=== PATIENT | female | born 1960 | race Caucasian/White ===

== ENCOUNTER 2016-09-20 22:46 | Inpatient (IN) ==
[2016-09-20] MEDS ORDERED: LORazepam 2 MG/1 ML VIAL IV STA (22:58)
[2016-09-20] MEDS ORDERED: HALOPERIDOL 5 MG/ML AMP IV STA (22:58)
--- NOTE | 2016-09-20 23:02 | Emergency Department Note ---
Arrival - Arrival Time Seen by Provider: 09/20/16 22:56 - History of Present Illness HPI Narrative: Patient presents via EMS after being found at home down. The mother called the ambulance because to patient was unresponsive. At the site of contact the patient was found to have Klonopin and no other medications. On EMS arrival her pupils were pinpoint. She had no response and Narcan was given. The patient immediately became combative and disoriented. On arrival to the emergency department she cannot contribute to the history of any further. Her history consists of saying no repetitively. Allergies/Adverse Reactions: Allergies Allergy/AdvReac Type Severity Reaction Status Date / Time No Known Allergies Allergy Verified 12/19/15 13:47 Home Medications: Home Medications Medication Instructions Recorded Confirmed Type Unable To Obtain [Unable to Obtain] 09/20/16 09/20/16 History Review of System - Review of System 12 point system: reviewed and no additional remarkable complaints except as stated Medical,Surgical,& Family Hx - Medical History Cardio: No history of: Hypertension Endocrine: No history of: Diabetes Mellitus (IDDM) Exam Physical Examination: General: Patient is well-developed and well-nourished with no ability to interact with the exam. HEENT: The extraocular muscles are intact. Pupils are 5 mm bilaterally and sluggish. Oropharynx is moist. There is no erythema or exudate. The tympanic membranes are shiny bilaterally. Neck: There is no adenopathy. Full range of motion is noted without pain. The trachea is midline. No JVD is present. Lungs: There is normal excursion of the chest with the lungs sounding clear bilaterally. No subcostal retractions are present. There is no point tenderness present. Heart: The heart has a regular rate and rhythm with no gallops or murmurs. Abdomen: The abdomen is nontender and nondistended with no rebound, guarding, or masses. Bowel sounds are normal. Back: The back demonstrates a normal appearance with no evidence of trauma. Genitourinary: Not examined. Extremities: The extremities demonstrate no clubbing, cyanosis, or edema. The visualized range of motion is normal. They appear atraumatic. The patient is moving all extremities vigorously and spontaneously with attempts to remove equipment during the exam. Neuro: Cranial nerves II through XII are checked and i demonstrate no asymmetry. Act. There is no focal motor or sensory deficit seen in the extremities. Skin: Skin is warm and dry with no evidence of rash. Vital Signs: Vital Signs Temperature 97.9 F 09/21/16 00:01 Pulse Rate 128 H 09/21/16 00:01 Respiratory Rate 20 09/21/16 00:01 Blood Pressure 105/67 09/21/16 00:01 O2 Sat by Pulse Oximetry 100 09/20/16 23:42 Course - Consultations Consultation #1: The hospitalist will evaluate and admit the patient. Time: 01:22 Results - Labs CBC & BMP: 09/20/16 23:19 09/20/16 23:19 Lab Results: I have reviewed the patients labs Labs: Lab Results WBC 20.3 T/CUMM (4-12) H 09/20/16 23: RBC 4.27 MC/CUMM (3.8-5.5) 09/20/16 23: Hgb 13.4 GM/DL (12.0-16.0) 09/20/16 23: Hct 40.7 VOL% (35.7-47.0) 09/20/16 23: MCV 95.3 FL (87-102) 09/20/16 23: MCH 31 PG (27-34) 09/20/16 23: MCHC 32.9 GM/DL (32-36) 09/20/16 23: RDW 13.8 % (9.3-17.3) 09/20/16 23: Plt Count 280 T/CUMM (130-400) 09/20/16 23: MPV 11.2 FL (9.6-12.0) 09/20/16 23: Neut % (Auto) 85.0 % (38.7-73.9) H 09/20/16 23: Lymph % (Auto) 9.8 % (21.3-54.2) L 09/20/16 23: [place] % (Auto) 3.6 % (1.7-12.7) 09/20/16 23: Eos % (Auto) 0.4 % (0.00-10.9) 09/20/16 23: Baso % (Auto) 0.2 % (0.0-0.8) 09/20/16 23: Neut # (Auto) 17.3 10*3/uL (1.4-7.4) H 09/20/16 23:19 Lymph # (Auto) 2.0 10*3/uL (1.4-4.0) 09/20/16 23:19 [place] # (Auto) 0.7 10*3/uL (0.11-0.8) 09/20/16 23:19 Eos # (Auto) 0.1 10*3/uL (0.0-0.87) 09/20/16 23:19 Baso # (Auto) 0.0 10*3/uL (0.0-0.2) 09/20/16 23:19 Immature Gran % 1.0 % 09/20/16 23:19 Nucleated RBC % 0.0 /100WBC 09/20/16 23:19 Immature Gran # 0.20 # 09/20/16 23:19 Nucleated RBCs # 0.00 10*3/uL 09/20/16 23:19 INR 1.0 09/20/16 23:19 PT Patient/Control Mix 10.7 SECS 09/20/16 23:19 Sodium 140 MMOL/L (136-145) 09/20/16 23:19 Potassium 3.3 MMOL/L (3.5-5.1) L 09/20/16 23:19 Chloride 101 MMOL/L (98-107) 09/20/16 23:19 Carbon Dioxide 22 MMOL/L (21-32) 09/20/16 23:19 Anion Gap 20.3 MMOL/L (5.0-15.0) H 09/20/16 23:19 BUN 9 MG/DL (7-18) 09/20/16 23:19 Creatinine 1.30 MG/DL (0.55-1.02) H 09/20/16 23:19 GFR Calculation 58 ML/MIN 09/20/16 23:19 BUN/Creatinine Ratio 6.00 RATIO (6.00-20.00) 09/20/16 23:19 Glucose 326 MG/DL (74-106) H 09/20/16 23:19 Calculated Osmolality 290.4 MOS/KG (273-304) 09/20/16 23:19 Calcium 8.6 MG/DL (8.5-10.1) 09/20/16 23:19 Magnesium 1.9 MG/DL (1.8-2.4) 09/20/16 23: Total Creatine Kinase 122 U/L (26-192) 09/20/16 23: CK-MB (CK-2) 1.4 U/L (0.5-3.6) 09/20/16 23: Troponin I < 0.015 NG/ML (0.00-0.045) 09/20/16 23: B-Natriuretic Peptide 20 PG/ML (2-100) 09/20/16 23: Amylase 43 U/L (25-115) 09/20/16 23: Urine Color Yellow (Yellow) 09/20/16 23: Urine Appearance Clear (Clear) 09/20/16 23: Urine pH 5.0 (4.5-8.0) 09/20/16 23: Ur Specific [place] 1.010 (1.001-1.035) 09/20/16 23: Urine Protein Negative MG/DL 09/20/16 23: Urine Glucose (UA) >=500 mg/dL (Negative) 09/20/16 23: Urine Ketones Negative mg/dL (Negative) 09/20/16 23: Urine Blood Negative mg/dL (Negative) 09/20/16 23: Urine Nitrate Negative (Negative) 09/20/16 23: Urine Bilirubin Negative mg/dL (Negative) 09/20/16 23: Urine Urobilinogen < 2.0 EU/DL (0.2-1.0) H 09/20/16 23: Urine Leukocytes Negative Tessa/ul (Negative) 09/20/16 23: Hyaline Casts 46 /LPF (0-3) 09/20/16 23: Granular Casts 4 /LPF (0-1) 09/20/16 23: Urine Mucus Occasional /LPF (Occasional) 09/20/16 23: Ur Culture Indicated? Not indicated 09/20/16 23: Urine Opiates Screen Positive (Negative) H 09/20/16 23:19 Ur Barbiturates Screen Negative (Negative) 09/20/16 23:19 Ur Phencyclidine Scrn Negative (Negative) 09/20/16 23: U Amphetamine/Methamph Positive (Negative) H 09/20/16 23:19 U Benzodiazepines Scrn Negative (Negative) 09/20/16 23:19 U Cocaine Metab Screen Negative (Negative) 09/20/16 23:19 U Cannabinoids Screen Negative (Negative) 09/20/16 23:19 Serum Alcohol < 15 MG/DL (<15) L 09/20/16 23:19 - Diagnostic Findings Procedure: Chest x-ray: report reviewed by me (No definite acute process.), CT: report reviewed by me (No acute intracranial process.) Disposition Clinical Impression: Opioid overdose, Hypokalemia, Klonopin ingestion Case discussed with: patient, patient's family Disposition: Disch To Home/Self Care Condition: Stable Time of Disposition: 01:22
[2016-09-20] MEDS ORDERED: HALOPERIDOL 5 MG/ML AMP ONE (23:35)
[2016-09-20] MEDS ORDERED: LORazepam 2 MG/1 ML VIAL ONE (23:35)
[2016-09-20 23:38] LABS: Apearance,Urine CLEAR (Clear); Basophils % 0.2 % (0.0-0.8); Bilirubin,Urine Negative (Negative); Blood, Urine Negative (Negative); Eosinophils # 0.1 10*3/uL (0.0-0.87); Eosinophils % 0.4 % (0.00-10.9); Glucose,Urine (UA) >=500 mg/dL (Negative); Granular Casts,Urine 4 /LPF (0-1); Hematocrit 40.7 VOL% (35.7-47.0); Hemoglobin 13.4 GM/DL (12.0-16.0); Hyaline Casts,Urine 46 /LPF (0-3); Ketones,Urine Negative (Negative); Lymphocytes % 9.8 % (21.3-54.2); Mean Corpuscular HGB Conc 32.9 GM/DL (32-36); Mean Corpuscular Hemoglobin 31 PG (27-34); Mean Corpuscular Volume 95.3 FL (87-102); Mean Platelet Volume 11.2 FL (9.6-12.0); Monocytes # 0.7 10*3/uL (0.11-0.8); Monocytes % 3.6 % (1.7-12.7); Mucus,Urine Occasional /LPF (Occasional); Neutrophils # 17.3 10*3/uL (1.4-7.4); Nitrite,Urine Negative (Negative); Platelet Count 280 T/CUMM (130-400); Protein,Urine Negative; Red Blood Count 4.27 MC/CUMM (3.8-5.5); Red Cell Distribution Width 13.8 % (9.3-17.3); Urine Color Yellow (Yellow); Urine Urobilinogen < 2.0 EU/DL (0.2-1.0); White Blood Count 20.3 T/CUMM (4-12)
[2016-09-20 23:41] LABS: Barbiturates Screen,Urine Negative (Negative); Benzodiazepines Screen,Urine Negative (Negative); Cannabinoid Screen,Urine Negative (Negative); Opiate Screen,Urine Positive (Negative); Phencyclidine Screen,Urine Negative (Negative)
[2016-09-20 23:56] LABS: Amylase 43 U/L (25-115); Blood Urea Nitrogen 9 MG/DL (7-18); Calcium 8.6 MG/DL (8.5-10.1); Glucose 326 MG/DL (74-106); Magnesium 1.9 MG/DL (1.8-2.4); Osmolality,Calculated 290.4 MOS/KG (273-304); Potassium 3.3 MMOL/L (3.5-5.1); Sodium 140 MMOL/L (136-145)
[2016-09-20 23:57] LABS: PT Patient Result 10.7 SECS
[2016-09-21 00:01] LABS: Troponin I Only < 0.015 NG/ML (0.00-0.045)
[2016-09-21] MEDS ORDERED: SODIUM CHLORIDE 0.9% 1,000 ML IV STA ×2 (00:10→00:52)
[2016-09-21] MEDS ORDERED: ONDANSETRON 4 MG/2 ML VIAL IV PRN (02:16)
--- NOTE | 2016-09-21 02:19 | Hospitalist History & Physical ---
Assessment and Plan (1) Hypokalemia Status: Acute Assessment and plan: IV KCl supplements ordered. Recheck in a.m. Current Visit: Yes (2) Opioid overdose Status: Acute Assessment and plan: Monitor in ICU. No indications for intubation at this time Current Visit: Yes Qualifiers: Encounter type: initial encounter Injury intent: accidental or unintentional Qualified Code(s): T40.2X1A - Poisoning by other opioids, accidental (unintentional), initial encounter History of Present Illness Chief complaint: Altered mental status History of present illness: Ms. Chau is a 55 year old female that presents via EMS after being found at home down. The mother called the ambulance because the patient was unresponsive. At the site of contact the patient was found to have Klonopin and no other medications. On EMS arrival her pupils were pinpoint. She had no response and Narcan was given. The patient immediately became combative and disoriented. On arrival to the emergency department she cannot contribute to the history of any further. Her history consists of saying no repetitively. She was arousable but not conversant. She is very sleepy and lethargic. No respiratory distress noted. I was asked to admit the patient to the intensive care unit for further observation after apparent overdose on benzodiazepines. The patient's drug screen is also positive for amphetamines. She is unable to provide any history due to her altered mental status. Home Medications Medication Instructions Recorded Confirmed Type Unable To Obtain [Unable to Obtain] 09/20/16 09/20/16 History Allergies Allergy/AdvReac Type Severity Reaction Status Date / Time No Known Allergies Allergy Verified 12/19/15 13:47 Medical,Surgical,& Family Hx - Medical History Medical History: noncontributory (Unable to obtain patient's medical history secondary to altered mental status. No home medications available for review) Cardio: No history of: Hypertension Endocrine: No history of: Diabetes Mellitus (IDDM) - Family History Additional Family History: Unable to obtain secondary to patient's mental status. - Social History Smoking Status: Unknown if ever smoked Frequency of Alcohol Use: Unknown Type of Drug Use: Unknown, Opiates, Methamphetamine Functional capacity: independent ambulation ROS unobtainable: due to mental status, due to encephalopathy Exam - Constitutional Vitals: Period Temp Pulse Resp BP Sys/May Pulse Ox Last 24 Hr 97.9 F-97.9 F 121-128 20-22 105-115/67-68 99-100 Exam: Constitutional System: No distress. No tremulousness. Sleepy, lethargic, arousable. Head: Normocephalic, atraumatic. Ears, Nose and Throat System: No pain or tenderness. No epistaxis or discharge Eyes System: Pupils equal, round, and reactive. Extraocular muscles intact. Neck: Supple, without adenopathy, No jugular venous distention. No thyromegaly, neck mass, or prior surgery apparent. Respiratory System: Chest clear to auscultation. Cardiovascular System: Heart with tachycardic rate and rhythm. No murmur. GI System: Abdomen soft, nontender. Normo active bowel sounds present. Musculoskeletal System: limbs with no pedal edema. Full distal pulses. Neurological System: No discernable sensory deficit. No aphasia Psychiatric System: Unable to assess secondary to altered mental status Results - Labs CBC & BMP: 09/20/16 23:19 09/20/16 23:19 Lab Results: I have reviewed the past 24 hour labs - Diagnostic Findings Procedure: Chest x-ray: image reviewed by me, report reviewed by me
[2016-09-21] MEDS ORDERED: SODIUM CHLORIDE 0.9% 500 ML IV STA (02:38)
[2016-09-21] MEDS ORDERED: GLUCAGON 1 MG VIAL IM PRN (03:38)
[2016-09-21] MEDS ORDERED: DEXTROSE 50% 25 GM/50 ML VIAL IV PRN (03:38)
[2016-09-21] MEDS: SODIUM CHLORIDE 0.9% 1,000 ML IV SCH ×3 (03:52→21:06)
[2016-09-21] MEDS: ENOXAPARIN 40 MG/0.4 ML SYRINGE SUBCUT SCH (04:57)
[2016-09-21] MEDS: POTASSIUM CHLORIDE RIDER 10 MEQ in PREMIX 1 EACH IV SCH ×4 (04:57→09:04)
[2016-09-21 05:53] LABS: Basophils % 0.1 % (0.0-0.8); Eosinophils % 0.1 % (0.00-10.9); Hematocrit 31.8 VOL% (35.7-47.0); Hemoglobin 10.3 GM/DL (12.0-16.0); Immature Granulocytes % 0.5 %; Immature Granulocytes Absolute 0.07 #; Lymphocytes # 2.1 10*3/uL (1.4-4.0); Lymphocytes % 14.9 % (21.3-54.2); Mean Corpuscular HGB Conc 32.4 GM/DL (32-36); Mean Corpuscular Hemoglobin 30 PG (27-34); Mean Corpuscular Volume 93.5 FL (87-102); Mean Platelet Volume 11.1 FL (9.6-12.0); Monocytes % 6.8 % (1.7-12.7); Neutrophils % 77.6 % (38.7-73.9); Platelet Count 241 T/CUMM (130-400); Red Cell Distribution Width 13.8 % (9.3-17.3); White Blood Count 14.2 T/CUMM (4-12)
--- NOTE | 2016-09-21 06:15 | CT Report ---
Referring physician: Manas Hernández Exam: CT brain without contrast Date: 09/20/2016 Comparison: None Reason: Alteration of consciousness Technique: Axial images of the head were obtained without the use of contrast. Total DLP was 997.90 mGy*cm. This exam was initially interpreted by the RCA. Findings: No hydrocephalus or midline shift is present. There is no evidence of an acute infarction, recent intracranial hemorrhage or abnormal mass effect. The osseous structures appear intact. The mastoid air cells and visualized paranasal sinuses are clear. Impression: No acute intracranial abnormality is identified. The CT exam was performed using one or more of the following dose reduction techniques: Automated exposure control and adjustment of the mA and/or kV according to patient size. PROCEDURE INTERPRETED AT [facility] DEPARTMENT OF RADIOLOGY Final Report Signed by: Dr. Diamond Avila
[2016-09-21 06:27] LABS: Calcium 7.9 MG/DL (8.5-10.1); Magnesium 1.8 MG/DL (1.8-2.4); Osmolality,Calculated 285.7 MOS/KG (273-304); Potassium 4.2 MMOL/L (3.5-5.1)
--- NOTE | 2016-09-21 06:29 | XRay Report ---
Portable chest Date: 09/20/2016 Clinical history: Chest pain, shortness of breath Comparison: None Technique: Portable AP sitting chest Findings: The heart is normal in size. The lungs are clear with unremarkable mediastinum. Degenerative changes are noted. Impression: No acute cardiopulmonary pathology identified. PROCEDURE INTERPRETED AT [facility] DEPARTMENT OF RADIOLOGY Final Report Signed by: Dr. Diamond Avila
--- NOTE | 2016-09-21 07:50 | EKG Report ---
Stationary ECG Study [facility] ER Test Date: 09/21/2016 12:10:45 AM Pat Name: KANIKA MORALES Department: Room: 129 Gender: F Stock Tracer: DION : 1960 Requested by: Manas Hernández Order Number: [id number] Reading MD: MICHAEL FARMER Intervals [place] Rate: 94 P: 30 AL: 136 QRS: 52 QRSD: 93 T: 50 QT: 327 QTc: 379 Interpretive Statements SINUS RHYTHM NONSPECIFIC T-WAVE ABNORMALITY Electronically Signed On 09-21-16 17:19:22 CDT by MICHAEL FARMER [email or web address]
[2016-09-21] MEDS: INSULIN LISPRO 100 UNIT/ML SUBCUT SCH ×4 (07:58→21:05)
[2016-09-21] MEDS ORDERED: SODIUM CHLORIDE 0.9% 500 ML IV ONE (11:29)
[2016-09-21 12:00] LABS: Basophils % 0.2 % (0.0-0.8); Eosinophils # 0.1 10*3/uL (0.0-0.87); Eosinophils % 1.1 % (0.00-10.9); Hematocrit 31.2 VOL% (35.7-47.0); Hemoglobin 9.9 GM/DL (12.0-16.0); Immature Granulocytes % 0.3 %; Immature Granulocytes Absolute 0.04 #; Lymphocytes # 3.6 10*3/uL (1.4-4.0); Lymphocytes % 30.6 % (21.3-54.2); Mean Corpuscular HGB Conc 31.7 GM/DL (32-36); Mean Corpuscular Hemoglobin 31 PG (27-34); Mean Corpuscular Volume 97.2 FL (87-102); Mean Platelet Volume 11.1 FL (9.6-12.0); Monocytes # 0.8 10*3/uL (0.11-0.8); Monocytes % 6.9 % (1.7-12.7); Neutrophils # 7.2 10*3/uL (1.4-7.4); Neutrophils % 60.9 % (38.7-73.9); Platelet Count 222 T/CUMM (130-400); Red Blood Count 3.21 MC/CUMM (3.8-5.5); Red Cell Distribution Width 13.9 % (9.3-17.3); White Blood Count 11.9 T/CUMM (4-12)
[2016-09-21] MEDS ORDERED: NALOXONE 0.4 MG/ML VIAL IV ONE (12:49)
[2016-09-21 13:16] LABS: Alanine Aminotransferase 10 U/L (13-56); Alkaline Phosphatase 57 U/L (45-117); Aspartate Amino Transferase 12 U/L (0-37); Bilirubin,Direct < 0.10 MG/DL (0.0-0.20); Bilirubin,Indirect 0.3 MG/DL (0.0-1.0); Bilirubin,Total < 0.39 MG/DL (0.2-1.0); Total Protein 5.1 G/DL (6.4-8.3)
[2016-09-21 16:01] LABS: Apearance,Urine CLOUDY (Clear); Bacteria,Urine Occasional /HPF (Few); Bilirubin,Urine Negative (Negative); Blood, Urine Moderate mg/dL (Negative); Glucose,Urine (UA) Negative (Negative); Ketones,Urine Negative (Negative); Mucus,Urine Occasional /LPF (Occasional); Nitrite,Urine Negative (Negative); Protein,Urine Negative; RBC,Urine 10 /HPF (0-4); Squamous Epithelial Cell,Urine Moderate /HPF (0-10); Urine Color Yellow (Yellow); Urine Specific Gravity 1.013 (1.001-1.035); Urine Urobilinogen < 2.0 EU/DL (0.2-1.0); WBC,Urine 87 /HPF (0-6)
[2016-09-21] MEDS ORDERED: SODIUM CHLORIDE 0.9% 1,000 ML IV ONE (17:48)
[2016-09-22] MEDS: SODIUM CHLORIDE 0.9% 1,000 ML IV SCH (04:23)
[2016-09-22] MEDS: ENOXAPARIN 40 MG/0.4 ML SYRINGE SUBCUT SCH (04:31)
[2016-09-22] MEDS ORDERED: CIPROFLOXACIN INJ 400 MG in PREMIX 1 EACH IV ONE (07:44)
[2016-09-22] MEDS: INSULIN LISPRO 100 UNIT/ML SUBCUT SCH (08:29)
--- NOTE | 2016-09-22 08:38 | Discharge Summary ---
Hospital Course - Hospital Course Hospital Course: The patient was admitted to the hospital with altered mental status and relative hypotension. She had metabolic encephalopathy. The patient was treated with supportive care and observed in the hospital. Blood pressure improved over the next 36 hours. The patient regained her usual level of alertness and states that she feels better. The patient does not express or exhibit evidence of suicidal ideation or thoughts of self-harm. On the date of discharge, chest clear and abdomen soft. Heart has regular rate and rhythm. Time spent with discharge procedure arranging documentation and giving education to the patient required 32 minutes. - Time spent with patient Time with patient DS: Greater than 30 minutes Diagnosis - Discharge Diagnosis (1) Metabolic encephalopathy Status: Resolved Discharge Plan - Discharge Data Disposition: Disch To Home/Self Care Condition at Discharge: Stable Discharge Diet: advance to your usual diet Activity: resume usual activities as tolerated - Discharge Medications Continue Pregabalin [Lyrica] 25 mg PO DAILY Celecoxib 200 mg PO DAILY Discontinued HYDROcodone/ACETAMIN 10-325 [[place] 10-325] 1 tablet PO Q6H clonazePAM [Clonazepam] 1 mg PO BID - Follow Up or Referral - Forms/Instructions Exam - Constitutional Vitals: Period Temp Pulse Resp BP Sys/May Pulse Ox Last 24 Hr 98.1 F-99.3 F 81-104 12-23 72-98/44-63 93-100 Discharge Results Procedures and tests throughout hospitalization: Pending Orders 09/21/16 Urine Culture Routine 09/21/16 03:40 MRSA Surveillence, Inf Control Routine Labs on day of discharge: Labs from last 24 hours 09/21/16 09/21/16 09/21/16 21:04 16:07 15:41 WBC RBC Hgb Hct MCV MCH MCHC RDW Plt Count MPV Neut % (Auto) Lymph % (Auto) [place] % (Auto) Eos % (Auto) Baso % (Auto) Neut # (Auto) Lymph # (Auto) [place] # (Auto) Eos # (Auto) Baso # (Auto) Immature Gran % Nucleated RBC % Immature Gran # Nucleated RBCs # POC Glucose 87 69 L Total Bilirubin Direct Bilirubin Indirect Bilirubin AST ALT Alkaline Phosphatase B-Natriuretic Peptide Total Protein Albumin Urine Color Yellow Urine Appearance Cloudy Urine pH 5.0 Ur Specific [place] 1.013 Urine Protein Negative Urine Glucose (UA) Negative Urine Ketones Negative Urine Blood Moderate Urine Nitrate Negative Urine Bilirubin Negative Urine Urobilinogen < 2.0 H Urine Leukocytes Large H Urine RBC 10 Urine WBC 87 Urine WBC Clumps Occasional Ur Squamous Epith Cells Moderate Urine Bacteria Occasional Urine Mucus Occasional Ur Culture Indicated? Results to follow Acetaminophen 09/21/16 09/21/16 09/21/16 11:55 11:53 11:48 WBC RBC Hgb Hct MCV MCH MCHC RDW Plt Count MPV Neut % (Auto) Lymph % (Auto) [place] % (Auto) Eos % (Auto) Baso % (Auto) Neut # (Auto) Lymph # (Auto) [place] # (Auto) Eos # (Auto) Baso # (Auto) Immature Gran % Nucleated RBC % Immature Gran # Nucleated RBCs # POC Glucose 75 Total Bilirubin < 0.39 Direct Bilirubin < 0.10 Indirect Bilirubin 0.3 AST 12 ALT 10 L Alkaline Phosphatase 57 B-Natriuretic Peptide 60 Total Protein 5.1 L Albumin 3.0 L Urine Color Urine Appearance Urine pH Ur Specific [place] Urine Protein Urine Glucose (UA) Urine Ketones Urine Blood Urine Nitrate Urine Bilirubin Urine Urobilinogen Urine Leukocytes Urine RBC Urine WBC Urine WBC Clumps Ur Squamous Epith Cells Urine Bacteria Urine Mucus Ur Culture Indicated? Acetaminophen 09/21/16 09/21/16 09/21/16 11:48 11:48 07:48 WBC 11.9 RBC 3.21 L Hgb 9.9 L Hct 31.2 L MCV 97.2 MCH 31 MCHC 31.7 L RDW 13.9 Plt Count 222 MPV 11.1 Neut % (Auto) 60.9 Lymph % (Auto) 30.6 [place] % (Auto) 6.9 Eos % (Auto) 1.1 Baso % (Auto) 0.2 Neut # (Auto) 7.2 Lymph # (Auto) 3.6 [place] # (Auto) 0.8 Eos # (Auto) 0.1 Baso # (Auto) 0.0 Immature Gran % 0.3 Nucleated RBC % 0.0 Immature Gran # 0.04 Nucleated RBCs # 0.00 POC Glucose 76 Total Bilirubin Direct Bilirubin Indirect Bilirubin AST ALT Alkaline Phosphatase B-Natriuretic Peptide Total Protein Albumin Urine Color Urine Appearance Urine pH Ur Specific [place] Urine Protein Urine Glucose (UA) Urine Ketones Urine Blood Urine Nitrate Urine Bilirubin Urine Urobilinogen Urine Leukocytes Urine RBC Urine WBC Urine WBC Clumps Ur Squamous Epith Cells Urine Bacteria Urine Mucus Ur Culture Indicated? Acetaminophen 7.0 L DS: Provider Date of admission: 09/21/16 02:16 Primary care physician: Darwin Barry MD Attending physician on admission: Jignesh Piper MD Discharging clinician: Adan Presley MD
[2016-09-22 09:17] VITALS: BP 99/50
--- NOTE | 2016-09-24 16:24 | Physician Query Form ---
CLICK EDIT DOCUMENT TO SELECT QUERY ANSWER --> OK --> SIGN Karena Connolly RN Clinical Work Adjustment Instructor W) [phone] (f) [phone] [email or web address] PROVIDERS: Make your selection(s) from the choices in EACH section by typing an "x" and enter comments in the comment section. Please use your independent medical judgment in providing your response. This request does not imply that any particular answer is desired or expected. CLINICAL INDICATORS: (Providers should not edit this section) Based on lab results of creatinine of 1.30 on admission with a GFR of 58 and decreased to 0.60. Pt. treated with IV fluids. Clarify which of the following most accurately represents the patient's renal status: (X ) Acute kidney injury (non-traumatic) ( ) Acute renal failure ( ) Acute renal failure with underlying Chronic Kidney Disease (CKD) - please provide stage below ( ) CKD - please provide stage below ( ) Other, please specify: ( ) Clinically unable to determine Chronic Kidney Disease Stages Source: National Kid[employer] Foundation ( ) Stage I (eGFR > or = 90) ( ) Stage II (eGFR 60 - 89) ( ) Stage III (eGFR 30 - 59) ( ) Stage IV (eGFR 15 - 29) ( ) Stage V (eGFR < 15 or dialysis) COMMENTS: PLEASE ALSO DOCUMENT RESPONSE IN PROGRESS NOTES AND/OR DISCHARGE SUMMARY Use of terms such as suspected, likely, or probable (associated with a specific diagnosis that is being evaluated, monitored, or treated as if it exists) are acceptable and can be restated in the discharge summary if not ruled out. MTDD
== END 2016-09-22 11:00 | disposition home or self-care (01) | DRG 812 ==
LOC: EDUNIT# → EDBD → N.ED 22:46 → SUATTDRO 09-21 02:16 → N.EDINP 09-21 02:16 → N.CC 09-21 03:19 → N.4E 09-21 17:47
PROVIDERS: ADMIT Family Medicine; ATTEND Internal Medicine